=== PATIENT | female | born 1990 | race African-American/Black ===

== ENCOUNTER → 2021-11-30 15:10 | Outpatient (CLI) | payer OTHER, SELFPAY ==
[2021-11-30 18:01] LABS: Hemoglobin 10.5 g/dL (12.0-16.0)
[2021-11-30 18:31] LABS: GTT (PREG) 1 Hour PP 50gm Dose 100 mg/dL (76-139)
[2021-12-01 11:46] LABS: Strep Grp B PCR POS for Grp B Strep
== END ==
PROVIDERS: Referring Provider Specialist; Visit Provider Specialist
DX: Z36.85 Encounter for antenatal screening for Streptococcus B (principal)
CPT/HCPCS: 36415; 82950; 85014; 85018; 87653

== ENCOUNTER 2021-12-21 05:35 | Inpatient (IN) | payer OTHER, SELFPAY ==
[2021-12-21 06:49] LABS: COVID19 -Nasal RAPID Negative (Negative)
[2021-12-21] MEDS: LACTATED RINGERS 1,000 ML 100 ML IV ×2 (07:34→10:51)
--- NOTE | 2021-12-21 07:38 | PM.PREOP ---
Pre-operative Note COVID-19 COVID-19 status: Negative Result date/Date tested (Pos, Neg/Pending): 12/21/21 Criteria for continued procedure: Expected advancement of disease process Interval Note History & Physical reviewed/Exam performed by Physician: Yes Changes to H&P: No
[2021-12-21 07:40] LABS: Add Manual Diff / Slide Review NO; Basophils Absolute Auto 0 /uL (0-100); Basophils Percent Auto 0.3 % (0-2); Eosinophils Absolute Auto 100 /uL (0-450); Eosinophils Percent Auto 0.9 % (2-4); Hematocrit 32.3 % (36-46); Hemoglobin 10.8 g/dL (12.0-16.0); Lymphocytes Absolute Auto 1700 /uL (1100-4500); Lymphocytes Percent Auto 21.6 % (25-40); Mean Corpuscular HGB Conc 33.4 % (30-36); Mean Corpuscular Hemoglobin 26.9 PG (26-34); Mean Corpuscular Volume 80.4 fL (80-100); Monocytes Absolute Auto 600 /uL (0-900); Monocytes Percent Auto 7.1 % (3-14); Neutrophils Absolute Auto 5500 /uL (1500-7000); Neutrophils Percent Auto 70.1 % (50-75); Platelet Count 322 X10^3/uL (150-400); Red Blood Cell Count 4.01 X10^6/uL (4.0-5.2); Red Cell Distribution Width 17.2 % (11.6-14.8); White Blood Cell Count 7.8 X10^3/uL (4.5-11.0)
[2021-12-21] MEDS: LACTATED RINGERS 1,000 ML 1000 ML IV (07:41)
[2021-12-21] MEDS: ACETAMINOPHEN 325 MG TABLET 975 MG PO (07:42)
[2021-12-21] MEDS: CITRIC ACID/SODIUM CITRATE 15 ML SOLUTION 30 ML PO (07:42)
--- NOTE | 2021-12-21 07:44 | PM.OBHP.1 ---
OB HPI Date/Time Date of admission: 12/21/21 Date Patient Seen: 12/21/21 Time Patient Seen: 07:44 History of Present Condition Chief complaint: MATERNITY : 3 Para: 1 Estimated Date of Delivery: 12/27/21 Narrative: Efrain Hyman is a 31 year old female here for repeat c section Indications Operative indications ( section): previous uterine surgery History of Present care: good care, initiated at week # (7), number of visits (12) and pounds weight gain (44) Dating criteria: LMP confirmed by 1st trimester US Ultrasounds: abnormal US findings Abnormal ultrasound findings: Anatomy screen normal except Aortic Arch and ductal Arch not well visualized Echo-Tracings normal, Presence of tiny ventricular septal defects, partial anomalous pulmonary venous return and coarctation of aorta cannot be ruled out. 7cm Anterior Fibroid. Obstetrical complications: none Medical complications: none Preadmission Labs Blood type: O (+) positive -: Antibody screen: negative, GBS status: positive, HBsAG: negative, HIV: negative and RPR/VDLR: negative -: Chlamydia screen: not detected and Gonorrhea screen: not detected -: Rubella: immune HCAB: negative Sequential screen: normal 1 hr GTT: 100 Prior (ies) History: 07/15/16 40week 30 8 lb 12 oz MaleC-sectionlive - full term other 02/04/21 5 spontaneous Evaluation Evaluation Baseline heart rate: 130 Variability: Moderate (11-25) monitor accelerations: Present Monitor Decelerations: Absent Contraction Frequency (minutes): 5 Uterine Contraction Intensity: Mild Category of Tracing: Reactive Status: Category l PFSH Medical History (Updated 12/21/21 @ 09:58 by Marta Hinton MD) Chickenpox Fibroid uterus Surgical History (Updated 11/16/21 @ 17:10 by Norberto Aguiar MD) H/O wisdom tooth extraction History of Family History (Updated 08/23/21 @ 10:06 by Sallie Davison, RACHELE) Mother Diabetes mellitus Hypertension , complications of Grandmother Diabetes mellitus Hypertension Grandfather Diabetes mellitus Hypertension Social History (Updated 08/15/21 @ 15:56 by Sallie Davison, RN) marital status: number of children: 1 household members: spouse and children pets and animals: No occupational status: unemployed seatbelt use: always water heater temp set < 120 deg: Yes working smoke detector in home: Yes fire extinguisher in home: Yes carbon monox detector in home: Yes firearms in home: No Smoking Status: Never smoker second hand exposure: No alcohol intake: former substance use type: does not use well-balanced diet: about half the time daily servings fruits/ve-1 caffeine: Yes (occas., limit 200 mg) Type(s) of exercise: none Meds Home Medications and Allergies Home Medications Medication Instructions Recorded Confirmed Type prenat.vits,yaniv,gjp-nvon-hjwet 1 tab PO DAILY 08/23/21 12/07/21 History Allergies Allergy/AdvReac Type Severity Reaction Status Date / Time No Known Drug Allergies Allergy Unverified 12/14/21 16:31 Review of Systems Review of Systems Narrative: No rupture of membranes or leakage of fluid. Patient denies feeling her contractions seen on monitor. No headaches, scotomata, epigastric pain. Good minute. OB Exam Narrative Exam Narrative: BP 122/78, P85, T 96.4 HEENT exam within normal limits. Lungs are clear to auscultation percussion. Heart is regular rate and rhythm no S3-S4 or murmurs. Abdomen is gravid and nontender. Fetus is vertex. Extremities without edema and nontender Objective Labs Result Diagrams: 12/21/21 07:05 Labs: Laboratory Results - last 24 hr 12/21/21 12/21/21 06:10 07:05 WBC 7.8 RBC 4.01 Hgb 10.8 L Hct 32.3 L MCV 80.4 MCH 26.9 MCHC 33.4 RDW 17.2 H Plt Count 322 Neut % (Auto) 70.1 Lymph % (Auto) 21.6 L [place] % (Auto) 7.1 Eos % (Auto) 0.9 L Baso % (Auto) 0.3 Neut # (Auto) 5500 Lymph # (Auto) 1700 [place] # (Auto) 600 Eos # (Auto) 100 Baso # (Auto) 0 SARS-CoV-2 (PCR) Negative Assessment and Plan Assessment and Plan Assessment and Plan narrative: 39 week gestation with prior section for repeat low-transverse section
[2021-12-21] MEDS: ACETAMINOPHEN IV 1,000 MG/100 ML VIAL 400 MG IV (07:58)
[2021-12-21] MEDS: CEFAZOLIN 2 GM/20 ML SYRINGE IV (08:25)
--- NOTE | 2021-12-21 08:31 | SUR.OPER ---
Supine on Padded OR bed, head on pillow, safety belt at thigh, arms secured on padded arm boards at <90 degrees abduction. Bump under right buttock. Legs uncrossed with pillow under knees, gel pad to heels, tape over blanket to lower legs. Directed and approved by surgical team Llamas inserted with ease at 0810. Clear yellow urine was visualized in tubing prior to balloon inflation. Secured at end of surgery to thigh.
[2021-12-21] MEDS: TRANEXAMIC ACID 1,000 MG VIAL 1000 MG INJ (08:49)
[2021-12-21] MEDS: LACTATED RINGERS 1,000 ML 42 ML IV (08:55)
--- NOTE | 2021-12-21 08:56 | SUR.OPER ---
Supine on Padded OR bed, head on pillow, safety belt at thigh, arms secured on padded arm boards at <90 degrees abduction. Bump under right buttock. Legs uncrossed with pillow under knees, gel pad to heels, tape over blanket to lower legs. Directed and approved by surgeon. Llamas inserted with ease at 0810. Clear yellow urine was visualized in tubing prior to balloon inflation. Secured to thigh prior to leaving OR.
--- NOTE | 2021-12-21 09:18 | SUR.OPER ---
Viable baby boy delivered at 0843. Placenta delivered at 0845. Placenta and cord blood sent with OB RN Katia.
[2021-12-21 09:51] VITALS: BP 135/82; PULSE 66; RESP 17; O2SAT 100
[2021-12-21 09:54] VITALS: BP 122/70; PULSE 66; RESP 16; TEMP 36.4; O2SAT 100
[2021-12-21 09:56] VITALS: BP 136/79; PULSE 63; RESP 15; O2SAT 100
--- NOTE | 2021-12-21 10:21 | PM.OBCS.1 ---
Operative Date/Time/Diagnoses Date of procedure: 12/21/21 Time of procedure: 10:00 Pre-op diagnosis: 39 week gestation with prior section Post-op diagnosis: same Procedure & Clinicians Procedure: Repeat section with extensive lysis of adhesions Same procedure as scheduled: Yes Indications: 39 week gestation with prior section for repeat section Surgeon: Marta Hinton Bridge Inspector: Lora Buitrago Anesthesia Type: Spinal Operative Notes Findings: Adhesion of the uterus to the anterior abdominal wall approximately 3/4 of the uterus involved. Normal tubes and ovaries. Viable male infant weighing 7 lb 13 oz with Apgars of 8 and 9. No uterine fibroid found. Closure Type: primary Specimen(s): cord blood Intraoperative meds administered: Acetaminophen, Duramorph, Ketorolac, Pitocin and Tranexamic acid Applied: Catheter (Llamas) Estimated Blood Loss (mL): 550 Blood products transfused: none Procedure in detail: The patient was brought to the operating room where she underwent a spinal for anesthesia. She was placed in a supine position with a left lateral tilt. A Llamas catheter was placed. Pulsatile stockings were placed and functional throughout the case. 2 g of Ancef were given IV prior to the incision. Warming was in place. The patient was prepped and draped in usual sterile fashion. A traxe pannus elevator drape was used. A low transverse incision was made with a scalpel through the prior incision and the incision was carried down to the fascial layer which was incised transversely with scissors. The financial planning assistant did her side of the incision. The midline attachments are superiorly and inferiorly. Some bleeding was controlled Bovie. The rectus muscles were in the midline. There were extensive adhesions. In the attempt to enter the abdominal wall the uterus myometrium was entered. As this entry into the myometrium appear to be above the bladder flap decision was made to proceed to continue into the uterus. The amniotic fluid sac was ruptured for clear fluid. The incision was stretched with the surgeon and financial planning assistant placing traction. Bladder blade was placed to hold the bladder held away from the incision. The head was elevated out of the abdomen and with fundal pressure and use of vacuum. Due to the tight fit and the large amount hair this did require several attempts. The infant was bulb suctioned for clear fluid. After 1 minute the cord was clamped cut and the baby handed off to the warmer. Cord blood was collected. The placenta delivered spontaneously with traction. The uterus was cleaned with clean laps. The uterine incision was closed in 2 layers of 0 chromic suture the first a running locking layer the second an imbricating layer. The financial planning assistant was helping to expose the incision. The initial incision is the uterus was half way up the uterus and required a 2nd closure. The gutters were cleaned of any remaining fluids and ovaries and tubes were observed to be normal. Adequate hemostasis was noted. Interceed was placed over the repair on the mid uterus. The perineum was closed with 2-0 Vicryl suture. The fascia layer was closed with 0 Vicryl suture with 2 stitches. The financial planning assistant repairing half the incision with helping to retract and expose the incision for the other half. The incision was irrigated and adequate hemostasis noted. The incision was closed with interrupted 3-0 Vicryl sutures and then a subcuticular stitch of 4-0 Vicryl suture. Steri-Strips were placed. The uterus was massaged to remove any clots. The patient went to recovery room in good condition. Counts of instruments and sponges were correct. Dr. Buitrago was present throughout the case to assist with retraction, fundal pressure to deliver the , and suturing half the fascia. Complications: none [place] Baby 1: Gender: Male Presentation: vertex Position: Left Occiput Posterior Placental Delivery Description: Manual Removal Cord Vessel Description: 3 Vessels score (1 min): 8 score (5 min): 9 weight: 7 lb 13 oz Post-operative Condition: stable Disposition: other ( Center) Aftercare: routine postop
[2021-12-21] MEDS: KETOROLAC 30 MG/ML VIAL IV ×2 (15:15→21:16)
[2021-12-21] MEDS: ACETAMINOPHEN 325 MG TABLET 650 MG PO (17:53)
[2021-12-22] MEDS: ACETAMINOPHEN 325 MG TABLET 650 MG PO ×4 (00:12→21:47)
[2021-12-22] MEDS: KETOROLAC 30 MG/ML VIAL IV (04:09)
--- NOTE | 2021-12-22 09:10 | PM.OBPN.1 ---
Subjective - OB Subjective Patient comments: no complaints, pain well controlled, tolerating diet and flatus present baby status: doing well feeding status: exclusively breast feeding Date Patient Seen: 12/22/21 Time Patient Seen: 09:10 Interval history: First postop night was uneventful. Moderate lochia. Tolerating regular diet and ambulating independently. + flatus, -BM. Baby doing well. Exam Vital Signs (past 8 hours): Oxygen Delivery Method Room Air Const General: cooperative and comfortable Nutritional Appearance: average body habitus Orientation: alert and oriented x3 HENMT Head: normal to inspection, atraumatic and abrasion Ears: hearing grossly normal bilaterally Face and sinus: face symmetric Eyes General: appearance normal, both eyes and all related structures Conjunctivae: conjunctivae normal Sclera: sclerae normal EOM: EOM intact bilaterally Neck Neck: normal visual inspection Resp Effort & Inspection: normal respiratory effort and able to speak in complete sentences Auscultation: clear to auscultation bilaterally Cardio Rate: regular rate Rhythm: regular rhythm Heart Sounds: S1 normal, S2 normal and no murmurs GI Inspection: normal to inspection and incision (Surgical dressing clean and dry) Palpation: soft, no hepatosplenomegaly and tender (Mild, diffuse postsurgical tenderness) External Female Exam: other (No significant bleeding noted) Extrem General: no calf tenderness Psych Appearance: grossly normal Mental Status: mental status grossly normal Speech and Movement: speech and movement normal Mood: congruent mood Affect: normal affect Attitude: cooperative Thought Process: normal Thought Content: normal Judgment: judgment good Objective Labs Result Diagrams: 12/21/21 07:05 Assessment & Plan Plan day: 1 plan OB: routine postop care Comments: Doing well. May be discharged later today if desired or in the AM if preferred. Time Spent With Patient Time: Total time spent is greater than 50% in coordination of care (as documented) at patient's floor/unit and/or counseling patient: Time with patient: less than 15 minutes
[2021-12-22] MEDS: IBUPROFEN 600 MG TABLET PO ×3 (09:52→21:48)
[2021-12-22] MEDS: OXYCODONE IR 10 MG TABLET PO ×2 (10:45→17:35)
[2021-12-22] MEDS: SIMETHICONE 80 MG TABLET PO ×2 (15:59→21:47)
[2021-12-22] MEDS: OXYCODONE IR 5 MG TABLET PO (21:51)
[2021-12-23] MEDS: ACETAMINOPHEN 325 MG TABLET 650 MG PO ×2 (04:44→10:58)
[2021-12-23] MEDS: IBUPROFEN 600 MG TABLET PO ×2 (04:44→10:58)
[2021-12-23] MEDS: SIMETHICONE 80 MG TABLET PO (04:45)
[2021-12-23] MEDS: OXYCODONE IR 5 MG TABLET PO ×2 (04:45→11:00)
--- NOTE | 2021-12-23 07:51 | PM.OBDS.1 ---
Discharge Providers Provider Date of admission: 12/21/21 05:35 Discharge Date: 12/23/21 Primary care physician: Marta Hinton MD Consults: 12/21/21 10:36 Consult to Ems Manager Routine Comment: Discharge provider: Norberto Aguiar MD Summary Hospital Course Date Patient Seen: 12/23/21 Time Patient Seen: 07:51 Diagnoses: Intrauterine gestation, [place], 39+1 weeks EGA delivered by section History of previous delivery Hospital Course: The patient was admitted on the morning of 12/21/2021 and underwent a repeat section at that time. Details of the procedure well summarized on the dictated operative note by Dr. Marta Hinton on that date. Following surgery the patient has done extremely well with prompt return of bowel and bladder function, she is ambulating independently, tolerating a regular diet, and her pain is well controlled with oral pain medications. She will be discharged now on the 2nd postoperative day to home after counseling regarding precautionary symptoms, limitations of activity, medications, and plans for follow-up. Medications at discharge will include vitamins 1 p.o. q.d., oxycodone 5 mg tab p.o. q.4 hours as needed pain dispense 20 with no refills, ibuprofen 600 mg p.o. q.6 hours as needed pain dispense 60 with 2 refills, and Colace 100 mg p.o. b.i.d. times 30 days. Follow-up will be in 1 week for incision check or as needed. Peripartum Data Infant Delivery Method: Section Laceration Description: None Episiotomy description: None complications: none [place] 1: Gender: Male Status at Discharge Cognitive/behavioral status at discharge: oriented Functional status at discharge: independent ambulation Overall status at discharge: patient is progressing back to baseline Time Spent with Patient Time attestation: Total time spent providing and/or coordinating discharge services: Objective Labs Result Diagrams: 12/21/21 07:05 Exam Vital Signs (past 8 hours): Oxygen Delivery Method Room Air Const General: cooperative and comfortable Nutritional Appearance: average body habitus Orientation: alert and oriented x3 HENMT Head: normal to inspection, atraumatic and abrasion Ears: hearing grossly normal bilaterally Face and sinus: face symmetric Eyes General: appearance normal, both eyes and all related structures Conjunctivae: conjunctivae normal Sclera: sclerae normal EOM: EOM intact bilaterally Neck Neck: normal visual inspection Resp Effort & Inspection: normal respiratory effort and able to speak in complete sentences Auscultation: clear to auscultation bilaterally Cardio Rate: regular rate Rhythm: regular rhythm Heart Sounds: S1 normal, S2 normal and no murmurs GI Inspection: normal to inspection and incision (Surgical dressing clean and dry) Palpation: soft, no hepatosplenomegaly and tender (Mild, diffuse postsurgical tenderness) External Female Exam: other (No significant bleeding noted) Extrem General: no calf tenderness Psych Appearance: grossly normal Mental Status: mental status grossly normal Speech and Movement: speech and movement normal Mood: congruent mood Affect: normal affect Attitude: cooperative Thought Process: normal Thought Content: normal Judgment: judgment good Discharge Plan Discharge Plan Patient Disposition: Home Provider Discharge Comment: Please review the written instructions you received when you were discharged from the hospital. Your follow-up appointment will be with Dr. Hinton in 1 week for an incision check. If in the meanwhile however you have any problems, concerns, or other issues, please contact Dr. Hinton either through the office phone number at [phone], or via the patient portal. Discharge orders & Medications Prescriptions: New ibuprofen 600 mg Tablet 600 mg PO Q6HR PRN (Reason: Fever/Mild Pain (1-3)) Qty: 60 2RF oxycodone 5 mg Tablet 5 mg PO Q4HR PRN (Reason: Pain, Moderate (4-6)) Qty: 20 0RF docusate sodium [Colace] 100 mg capsule 100 mg PO BID 30 Days Qty: 60 0RF Continued prenat.vits,yaniv,kke-hhgb-djrdn Tablet 1 tab PO DAILY Follow up/Referrals: Marta Hinton MD [Primary Care Provider] - Discharge Health Status Multidrug resistant organism: No MDRO Diet/Activity/Treatments Diet: Diet as Tolerated Activity: As tolerated Other treatments: [id number] Tylenol as needed for pain. Skin/Wound/Dressing Care Report to your healthcare provider any signs of infection, such as:: chills, fever, increased pain, unusual drainage and unusual redness Dressing: Dressing will be removed at the time of your 1 week postop visit. Visit Report/Discharge Packet Instructions: DI for , DI for and Nipple Soreness, DI for Prescription Opioid Use Discharge Data Primary Care Provider: Marta Hinton
[2021-12-23 11:11] VITALS: BP 98/57; PULSE 66; RESP 16; TEMP 36.4
== END 2021-12-23 13:40 | disposition home or self-care (01) | DRG 788 ==
PROVIDERS: Admitting Provider Specialist; PCP Specialist; Referring Provider Specialist; Visit Provider Specialist
PROC: 10D00Z1 Extraction of Products of Conception, Low, Open Approach (ICD-10-PCS; CPT 59514; principal; 2021-12-21 07:45)
DX: O34.211 Maternal care for low transverse scar from previous cesarean delivery (principal); Z3A.39 39 weeks gestation of pregnancy; Z37.0 Single live birth; O99.824 Streptococcus B carrier state complicating childbirth; O99.02 Anemia complicating childbirth; D64.9 Anemia, unspecified; O99.214 Obesity complicating childbirth; Z20.822 Contact with and (suspected) exposure to COVID-19
CPT/HCPCS: 36415; 59050; 59514; 59515; 85025; 86850; 86900; 86901; 87635; C9803; J0131; J0690; J1885; J2274; J2405; J2590

== ENCOUNTER → 2022-01-30 17:01 | Outpatient (CLI) | payer OTHER, SELFPAY | PROVIDERS: Visit Provider Obstetrics & Gynecology | DX: T81.40XA Infection following a procedure, unspecified, initial encounter (principal) | CPT/HCPCS: 87070; 87075; 87077; 87147; 87205 ==